=== PATIENT | female | born 1970 | race Caucasian/White ===

== ENCOUNTER 2020-07-20 19:33 | Inpatient (IN) | payer OTHER ==
[~2020-07-20] VITALS: Ht 170.2 cm; Wt 160.3 kg
[~2020-07-20 19:33] MED LIST: IBUPROFEN800 MG PO; KEFLEX500 MG PO; LO-DOSE ASPIRIN81 MG PO; PERCOCET 5/325 T1 EA PO
[2020-07-20 20:37] LABS: HEMOGLOBIN 11.6 gm/dl (12.3-15.3); RED BLOOD COUNT 5.05 M/UL (4.00-5.10); WHITE BLOOD COUNT 9.1 K/UL (4.5-11.0)
[2020-07-20 21:09] LABS: BUN/CREATININE RATIO 15 (0-10)
[2020-07-21 08:51] LABS: HEMOGLOBIN 11.1 gm/dl (12.3-15.3); RED BLOOD COUNT 4.84 M/UL (4.00-5.10)
[2020-07-21 09:26] LABS: BUN/CREATININE RATIO 13 (0-10)
--- NOTE | 2020-07-21 10:35 | NUR ---
[address] everett of consult [address] cloud of consult
[2020-07-22 05:23] LABS: HEMOGLOBIN 10.4 gm/dl (12.3-15.3); RED BLOOD COUNT 4.58 M/UL (4.00-5.10); WHITE BLOOD COUNT 7.7 K/UL (4.5-11.0)
[2020-07-22 05:33] LABS: BUN/CREATININE RATIO 15 (0-10)
[2020-07-23 05:18] LABS: HEMOGLOBIN 10.3 gm/dl (12.3-15.3); RED BLOOD COUNT 4.56 M/UL (4.00-5.10)
[2020-07-23 05:44] LABS: BUN/CREATININE RATIO 17 (0-10)
--- NOTE | 2020-07-24 01:03 | NUR ---
0005 APPLIED PULSE OX DEVICE FOR SLEEP STUDY, PT KEEP D-STATING TO LOW 80S-70'S THEN DROPPED TO 69%. 0035 2L O2 WAS APPLIED.
[2020-07-24 04:07] LABS: HEMOGLOBIN 11.2 gm/dl (12.3-15.3); RED BLOOD COUNT 4.88 M/UL (4.00-5.10); WHITE BLOOD COUNT 8.2 K/UL (4.5-11.0)
[2020-07-24 04:45] LABS: BUN/CREATININE RATIO 20 (0-10)
[2020-07-24] MEDS ORDERED: CARVEDILOL12.5 MG PO (11:30)
[2020-07-24] MEDS ORDERED: FUROSEMIDE40 MG PO (11:30)
[2020-07-24] MEDS ORDERED: IPRAT-ALBUT 0.5-3 ML NEB (11:30)
[2020-07-24] MEDS ORDERED: DIAMOX 250 MG250 MG PO (12:08)
== END 2020-07-24 14:23 | disposition home or self-care (01) | DRG 291 ==
LOC: ER1 19:33 → M/S 23:12 → CDU 23:12 → CCU 23:12 → M/S 23:47 → CCU 07-21 10:17 → MED SURG 4 07-23 16:55
PROVIDERS: Family Medicine; Internal Medicine; ADMIT Internal Medicine
PROC: 5A09457 Assistance with Respiratory Ventilation, 24-96 Consecutive Hours, Continuous Positive Airway Pressure (ICD-10-PCS; 2020-07-20)
PROC: B24BZZZ Ultrasonography of Heart with Aorta (ICD-10-PCS; principal; 2020-07-21)
DX: I11.0 Hypertensive heart disease with heart failure (principal); J96.02 Acute respiratory failure with hypercapnia; I50.31 Acute diastolic (congestive) heart failure; J96.01 Acute respiratory failure with hypoxia; J81.0 Acute pulmonary edema; Z20.822 Contact with and (suspected) exposure to COVID-19; Z68.41 Body mass index [BMI] 40.0-44.9, adult; E66.2 Morbid (severe) obesity with alveolar hypoventilation; E87.3 Alkalosis; I27.81 Cor pulmonale (chronic); I27.20 Pulmonary hypertension, unspecified; F19.11 Other psychoactive substance abuse, in remission; J44.9 Chronic obstructive pulmonary disease, unspecified; R73.9 Hyperglycemia, unspecified; E78.5 Hyperlipidemia, unspecified; F17.200 Nicotine dependence, unspecified, uncomplicated; J98.6 Disorders of diaphragm; D64.9 Anemia, unspecified; Z86.018 Personal history of other benign neoplasm; Z88.7 Allergy status to serum and vaccine; Z88.8 Allergy status to other drugs, medicaments and biological substances; Z82.49 Family history of ischemic heart disease and other diseases of the circulatory system
CPT/HCPCS: ECHO; 36415; 36600; 71045; 71046; 78452; 80048; 80053; 82550; 82553; 82800; 82803; 83605; 83735; 83880; 84484; 85025; 85027; 85379; 85610; 87040; 93005; 93017; 93306; 94640; 94660; 94664; 94760; 96372; 96374; 99285; A9502; J1120; J1650; J1885; J1940; J2785; Q9967; U0002